=== PATIENT | female | born 1995 ===

== ENCOUNTER 2017-09-24 22:09 | Emergency (ER) | payer BC ==
[~2017-09-24] VITALS: Ht 172.7 cm; Wt 67.4 kg
[2017-09-24 22:04] VITALS: TEMP 36.6; Ht 172.7 cm; Wt 67.4 kg
[2017-09-24] MEDS ORDERED: LORAZEPAM 2 MG/ML 1 ML VIAL IV STA (22:13)
[2017-09-24] MEDS ORDERED: SODIUM CHLORIDE 0.9% 1000ML 1,000 ML IV STA (22:13)
[2017-09-24 22:27] VITALS: O2SAT 100
[2017-09-24 22:49] LABS: BASO % 0.3 %; BASO ABS # 0.02 K/uL (0-0.2); EOS % 0.6 %; EOS ABS # 0.04 K/uL (0-0.5); HEMATOCRIT 37.5 % (37-47); HEMOGLOBIN 12.6 g/dL (12.0-16.0); IG# 0.01 K/uL (0.00-0.02); LYMPH % 45.7 %; LYMPH ABS # 3.17 K/uL (1.2-3.4); MEAN CELL VOLUME 85.4 fL (80-100); MEAN CORPUSCULAR HEMOGLOBIN 28.7 pg (25-34); MEAN CORPUSCULAR HGB CONC 33.6 g/dl (32-36); MEAN PLATELET VOLUME 10.3 fL (7.4-10.4); MONO % 10.4 %; MONO ABS # 0.72 K/uL (0.11-0.59); NEUT % 42.9 %; NEUT ABS # 2.97 K/uL (1.4-6.5); PLATELET COUNT 332 K/uL (130-400); RED CELL DISTRIBUTION WIDTH CV 12.2 % (11.5-14.5); RED CELL DISTRIBUTION WIDTH SD 38.2 fL (36.4-46.3); WHITE BLOOD COUNT 6.93 K/uL (4.8-10.8)
[2017-09-24 22:59] LABS: ALBUMIN 4.1 gm/dl (3.4-5.0); CALCIUM 9.6 mg/dl (8.5-10.1); CREATININE 1.14 mg/dl (0.60-1.20); POTASSIUM 3.6 mmol/L (3.5-5.1); TOTAL PROTEIN 8.7 gm/dl (6.4-8.2)
--- NOTE | 2017-09-24 23:05 | DIAGNOSTIC IMAGING REPORT ---
CHEST ONE VIEW PORTABLE CLINICAL HISTORY: Atypical chest pain COMPARISON STUDY: No previous studies for comparison. FINDINGS: The cardiac and mediastinal contours are normal. There is no evidence of focal pulmonary consolidation. There is no evidence of failure. No pleural effusions are visualized.[ IMPRESSION: No active disease in the chest. Electronically signed by: Lenny Stewart M.D. 09/24/2017 11:03 PM Dictated Date/Time: 09/24/2017 11:03 PM
[2017-09-24] MEDS ORDERED: BIOT10TA2 PO (23:07)
[2017-09-24] MEDS ORDERED: MECL1TAB42 PO (23:07)
[2017-09-24] MEDS ORDERED: MULT-506 PO (23:07)
[2017-09-24] MEDS ORDERED: ATIVAN 1MG HOMEPACK PO ONE (23:30)
[2017-09-24 23:43] VITALS: BP 144/71; PULSE 101; O2SAT 100
--- NOTE | 2017-09-24 23:53 | EMERGENCY ROOM VISIT NOTE ---
History First contact with patient: 22:09 Chief Complaint: ANXIETY Stated Complaint: CHEST PAIN, SOB History of Present Illness The patient is a 22 year old female who presents to the Emergency Room with complaints of intermittent palpitations, chest pain and dyspnea. Patient states for the past few weeks she has had intermittent palpitations. Patient states for the past few days she has been having occasional chest pain and dyspnea. Patient does suffer from anxiety. Patient has been fasting due to Ramadan. Patient is Nondenominational. She describes chest pain as discomfort, ranging in severity 5 out of 10 midsternal that does not radiate. Nothing makes it better or worse. No control. She has traveled recently. Patient denies exertional chest pain, back pain, abdominal pain, leg pain or swelling, nausea, vomiting, diarrhea, cold symptoms, fever, chills, weakness. No IV drug abuse. No alcohol use. No tobacco use. No family history of heart disease or blood clots. Review of Systems An 10 system review of systems was completed with positives and pertinent negatives listed in the HPI. Past Medical/Surgical History Anxiety, vertigo Social History Smoking Status: Never Smoker Smokeless Tobacco Use: No Alcohol Use: none Drug Use: none Occupation Status: employed, [employer] student Current/Historical Medications Scheduled Biotin (Biotin), 1 TAB PO DAILY Multivitamin (Multivitamin), 1 TAB PO DAILY Scheduled PRN Meclizine Hcl (Meclizine Hcl), 1 TAB PO TID PRN for Dizziness or Vertigo Physical Exam Vital Signs Date Time Temp Pulse Resp B/P (MAP) Pulse Ox O2 Delivery O2 Flow Rate FiO2 09/24/17 23:43 101 18 144/71 100 09/24/17 22:27 100 Room Air 09/24/17 22:15 101 09/24/17 22:04 36.6 114 18 150/95 96 Room Air Physical Exam VITALS: Vitals are noted on the nurse's note and reviewed by myself. Vital signs mildly tachycardic. GENERAL: Anxious appearing female, in no acute distress, nondiaphoretic, well- developed well-nourished. SKIN: The skin was without rashes, erythema, edema, or bruising. There is no tenting of the skin. Capillary reflex less than 2 seconds. HEAD: Normocephalic atraumatic. EARS: External auditory canals clear, tympanic membranes pearly hill without erythema or effusion bilaterally. EYES: Pupils equal round and reactive to light and accommodation. Conjunctivae without injection, sclerae without icterus. Extraocular movements intact. NOSE: Patent, turbinates without inflammation or discharge. MOUTH: Mucous membranes moist. Pharynx without erythema or exudate. Uvula midline. Airway patent. Tongue does not deviate. NECK: Supple without nuchal rigidity. No lymphadenopathy. No thyromegaly. Cervical spine is nontender. No JVD. HEART: Mildly tachycardic rate and rhythm without murmurs gallops or rubs. LUNGS: Clear to auscultation bilaterally without wheezes, rales or rhonchi. No retractions or accessory muscle use. ABDOMEN: Positive bowel sounds x 4. Normal tympanic percussion. Soft, nontender, without masses or organomegaly. Perez sign negative. No guarding or rebound tenderness. No CVA tenderness MUSCULOSKELETAL: No muscle atrophy, erythema, or edema noted. NEURO: Patient was alert and oriented to person place and time. Normal sensation to light and sharp touch. No focal neurological deficits. Medical Decision & Procedures Laboratory Results 09/24/17 20:00 Red Blood Count 4.39, Mean Corpuscular Volume 85.4, Mean Corpuscular Hemoglobin 28.7, Mean Corpuscular Hemoglobin Concent 33.6, Mean Platelet Volume 10.3, Neutrophils (%) (Auto) 42.9, Lymphocytes (%) (Auto) 45.7, Monocytes (%) (Auto) 10.4, Eosinophils (%) (Auto) 0.6, Basophils (%) (Auto) 0.3, Neutrophils # (Auto ) 2.97, Lymphocytes # (Auto) 3.17, Monocytes # (Auto) 0.72, Eosinophils # (Auto ) 0.04, Basophils # (Auto) 0.02 09/24/17 20:00 Test 09/24/17 20:00 09/24/17 22:21 White Blood Count 6.93 K/uL (4.8-10.8) Red Blood Count 4.39 M/uL (4.2-5.4) Hemoglobin 12.6 g/dL (12.0-16.0) Hematocrit 37.5 % (37-47) Mean Corpuscular Volume 85.4 fL (80-100) Mean Corpuscular Hemoglobin 28.7 pg (25-34) Mean Corpuscular Hemoglobin Concent 33.6 g/dl (32-36) Platelet Count 332 K/uL (130-400) Mean Platelet Volume 10.3 fL (7.4-10.4) Neutrophils (%) (Auto) 42.9 % Lymphocytes (%) (Auto) 45.7 % Monocytes (%) (Auto) 10.4 % Eosinophils (%) (Auto) 0.6 % Basophils (%) (Auto) 0.3 % Neutrophils # (Auto) 2.97 K/uL (1.4-6.5) Lymphocytes # (Auto) 3.17 K/uL (1.2-3.4) Monocytes # (Auto) 0.72 K/uL (0.11-0.59) Eosinophils # (Auto) 0.04 K/uL (0-0.5) Basophils # (Auto) 0.02 K/uL (0-0.2) RDW Standard Deviation 38.2 fL (36.4-46.3) RDW Coefficient of Variation 12.2 % (11.5-14.5) Immature Granulocyte % (Auto) 0.1 % Immature Granulocyte # (Auto) 0.01 K/uL (0.00-0.02) Anion Gap 8.0 mmol/L (3-11) Est Creatinine Clear Calc Drug Dose 76.7 ml/min Estimated GFR () 77.9 Estimated GFR (Non- 67.3 BUN/Creatinine Ratio 13.9 (10-20) Calcium Level 9.6 mg/dl (8.5-10.1) Magnesium Level 1.9 mg/dl (1.8-2.4) Total Bilirubin 0.5 mg/dl (0.2-1) Direct Bilirubin 0.1 mg/dl (0-0.2) Aspartate Amino Transf (AST/SGOT) 18 U/L (15-37) Alanine Aminotransferase (ALT/SGPT) 22 U/L (12-78) Alkaline Phosphatase 47 U/L (45-117) Total Protein 8.7 gm/dl (6.4-8.2) Albumin 4.1 gm/dl (3.4-5.0) Lipase 138 U/L (73-393) Thyroid Stimulating Hormone (TSH) 2.220 uIu/ml (0.300-4.500) Human Chorionic Gonadotropin, Qual NEG (NEG) Bedside D-Dimer 312 ng/mlFEU (0-450) Bedside Troponin I < 0.030 ng/ml (0-0.045) Medications Administered Medications (Trade) Dose Ordered Sig/Keri Route Start Time Stop Time Status Last Admin Dose Admin Lorazepam (Ativan Inj) 0.5 mg NOW STAT IV 09/24/17 22:13 09/24/17 22:15 DC 09/24/17 22:23 0.5 MG Sodium Chloride 1,000 ml @ 999 mls/hr Q1H1M STAT IV 09/24/17 22:13 09/24/17 23:13 DC 09/24/17 22:23 999 MLS/HR Lorazepam (Ativan 1MG Home Pack) 1 homepack UD ONCE PO 09/24/17 23:30 09/24/17 23:31 DC 09/24/17 23:42 1 HOMEPACK ED Course Prior records/ancillary studies reviewed. Triage Nursing notes reviewed. Additional history obtained from EMS The patient's history was concerning for palpitations with chest pain who appears anxious. Differential diagnosis: Etiologies such as premature contractions, anxiety, cardiac, electrolyte abnormality, cardiac dysrhythmia, thyroid dysfunction, pulmonary embolism, infection, gastrointestinal, as well as others were entertained. Physical examination: Benign as above. ER treatment provided: Ativan On reassessment the patient felt better. Diagnostic interpretation by me: Cardiac monitoring revealed no dysrhythmia. The electrocardiogram was negative for pathologic change. Normal sinus, normal vitals, no acute ST-T wave changes. Impression normal sinus rhythm interpreted by myself The labs revealed negative d-dimer. Negative troponin. Euthyroid Imaging studies: Chest x-ray with no acute consolidation, pneumothorax or free of my interpretation. HEART SCORE: Hx: high/mod/low suspicion: 0 ECG: ST depression/nonspecific changes/normal: 0 Age: Greater than 65/45-64/less than 45: 0 Risk factors: (Hypertension, hyperlipidemia, diabetes, coronary disease, tobacco use, cocaine use): 0 Troponin: Greater than 2 times normal limits/1-2 times normal limits/normal: 0 Total: 0 The pulmonary embolism rule out criteria (PERC rule) Age <50 years 0 Heart rate <100 bpm yes Oxyhemoglobin saturation =95% 0 No hemoptysis 0 No estrogen use 0 No prior DVT or PE 0 No unilateral leg swelling 0 No surgery/trauma requiring hospitalization within the prior four weeks 0 (0 low risk) Total: 1 yes Wells Score Symptoms of DVT 3pt: 0 Alternative diagnoses better explains illness 3pts: 0 Tachycardia greater than 100 1.5 pts 1.5 Immobilization greater than 3 days or surgery in the previous 4 weeks 1.5 pts: 0 Prior history of DVT or PE 1.5 pts: 0 Presence of hemoptysis 1pt: 0 Presence of malignancy 1pt: 0 (Score greater than 6 is high probability, score 2-6 moderate probability, score less than 2 low probability) Total: 1.5 This appears to be consistent with chest pain and palpitations most likely related to anxiety. Patient had a normal EKG. Negative troponin. Negative exam. Euthyroid. She was not anemic. She was not . She is advised to follow-up with cardiology as recommended by her family care doctor for outpatient Holter monitor and for further evaluation and workup for her symptoms today. She is advised to follow-up family care for her anxiety and to take medications as directed. Patient was neurovascularly and neurologically intact. She is well-appearing. No acute findings in the above workup. Her heart score was low. Her PERC and Wells score was low.. By the evaluation outlined above emergent etiologies such as electrolyte abnormality, cardiac dysrhythmia, thyroid dysfunction, pulmonary embolism, infection, as well as others were deemed relatively unlikely. The pt informed about the findings as listed above. All questions were answered and pleased with the treatment. Return instructions were outlined and the patient was discharged in stable condition. Outpatient prescription management: ativan Referral: The patient was referred back to their primary care physician for follow-up in 2 to 3 days for a recheck of the current condition Case reviewed with my attending The chart was completed utilizing [employer] voice recognition software. Grammatical errors, random word insertions, pronoun errors, and incomplete sentences are an occassional consequence of this system due to software limitations, ambient noise, and hardware issues. Any formal questions or concerns about the content, text, or information contained within the body of this dictation should be directly addressed to the physician therapeutic assistant for clarification. Medical Decision As above Medication Reconcilliation Current Medication List: was personally reviewed by me Blood Pressure Screening Patient's blood pressure: Normal blood pressure Impression Primary Impression: Chest pain Additional Impression: Palpitations Departure Information Dispostion Home / Self-Care Condition GOOD Forms HOME CARE DOCUMENTATION FORM, IMPORTANT VISIT INFORMATION Patient Instructions Heart Palpitations, My [facility] Additional Instructions Recommend outpatient Holter monitor. Ativan 1 m tablet every 8 hours as needed for anxiety. No alcohol or driving on this medication. Decrease caffeine, alcohol, tobacco and salt intake. Avoid stimulants near bedtime. Ibuprofen(Motrin, Advil) may be used for fever or pain. Use 600mg every six hours as needed. Take with food. Avoid using more than 2400mg in a 24 hour period. Do not use 2400mg per day for more than three consecutive days without physician direction. Prolonged inappropriate use can lead to stomach upset or ulcers. (AND/OR) Acetaminophen(Tylenol) may be used for fever or pain. Use 1000mg every six hours as needed. Avoid using more than 3000mg in a 24 hour period. Rest and drink plenty of fluids as tolerated. Continue current medications. Avoid strenuous activities and anything that worsens your symptoms. Resume normal activities once your symptoms resolve. Return to the ER immediately for worsening or persistent prolonged palpitations , abdominal pain, vomiting, fevers, chest pains, difficulty breathing, worsening of your condition, or as needed. Follow up with your primary physician in 2-3 days for a recheck of your current condition. Problem Qualifiers Primary Impression: Chest pain Chest pain type: unspecified Qualified Codes: R07.9 - Chest pain, unspecified
== END 2017-09-24 23:44 | disposition home or self-care (01) ==
LOC: C.EDB 22:11
DX: R07.9 Chest pain, unspecified (principal); R00.2 Palpitations; F41.9 Anxiety disorder, unspecified